=== PATIENT | male | born 1995 | race Caucasian/White ===

== ENCOUNTER 2017-06-02 20:42 | Emergency (ER) | payer SELFPAY ==
[2017-06-02 22:49] VITALS: BP 116/59
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
== END 2017-06-02 21:25 | disposition home or self-care (01) ==
LOC: FB.ED 20:42
DX: F44.5 Conversion disorder with seizures or convulsions (principal); F43.10 Post-traumatic stress disorder, unspecified; Z79.899 Other long term (current) drug therapy; Z72.820 Sleep deprivation
CPT/HCPCS: 99284